=== PATIENT | female | born 1955 | race Caucasian/White ===

== ENCOUNTER 2023-04-06 13:03 | Inpatient (IN) ==
[2023-04-06 13:43] LABS: ABS Lymphocytes 1.1 10^3/uL (1.0-4.8); ABS Monocytes 1.5 10^3/uL (0.0-0.9); ABS Nucleated RBC 0.01 10^3/ul; Hematocrit 41.9 % (35-45); Hemoglobin 13.7 g/dL (11.5-14.3); Mean Corpuscular Hemoglobin 26.4 pg (27-33); Mean Corpuscular Hgb Conc 32.8 g/dL (31-36); Mean Corpuscular Volume 80.5 fL (80-97); Mean Platelet Volume 7.7 fL (7.5-11.2); Nucleated Red Blood Cells % 0.1 %/100WBC (0.0-0.8); Platelet Count 225 10^3/uL (150-450); White Blood Count 18.6 10^3/uL (3.8-11.8)
[2023-04-06 14:03] LABS: Albumin/Globulin Ratio 1.2 (1-3); Calcium 9.4 mg/dL (8.6-10.3); Creatinine, Serum 0.81 mg/dL (0.51-0.95); Globulin 3.3 g/dL (2-4); Total Bilirubin 1.3 mg/dL (0.2-1.0); Total Protein 7.3 g/dL (6.4-8.9); eGFR CKD-EPI 79.5 (>60)
[2023-04-06 14:04] LABS: INR 1.16 (0.83-1.13)
[2023-04-06 15:49] LABS: High Sensitivity Troponin 1 Hr 6 pg/mL (<15)
[2023-04-06] MEDS: Albuterol/Ipratropium NEB.SOL (2.5/0.5 MG) 3 ML NEB.SOLN INH ONE ×2 (15:58→16:50)
[2023-04-06] MEDS: Dexamethasone IV 4 MG/ML VIAL 1 ml VIAL IV SLOW PU ONE (15:58)
[2023-04-06] MEDS: cefTRIAXone 1 gm/50 mL D5W 1 GM/50 ML BAG IV SCH (15:58)
[2023-04-06] MEDS: Azithromycin 500 mg/250 ml NS 500 MG/250 ML BAG IVPB ONE (15:59)
[2023-04-06] MEDS ORDERED: Albuterol/Ipratropium NEB.SOL (2.5/0.5 MG) 3 ML NEB.SOLN INH PRN (19:38)
[2023-04-07] MEDS: Albuterol/Ipratropium NEB.SOL (2.5/0.5 MG) 3 ML NEB.SOLN INH SCH ×2 (00:16→16:04)
[2023-04-07 07:17] LABS: ABS Lymphocytes 0.7 10^3/uL (1.0-4.8); ABS Monocytes 0.4 10^3/uL (0.0-0.9); ABS Neutrophils 11.7 10^3/uL (1.5-7.6); Hematocrit 38.3 % (35-45); Hemoglobin 12.9 g/dL (11.5-14.3); Lymphocyte % 5.6 %; Mean Corpuscular Hgb Conc 33.6 g/dL (31-36); Mean Corpuscular Volume 80.3 fL (80-97); Mean Platelet Volume 7.8 fL (7.5-11.2); Platelet Count 209 10^3/uL (150-450); Red Blood Count 4.77 10^6/uL (3.63-4.92); Red Cell Distribution Width 13.1 % (12-17); White Blood Count 12.8 10^3/uL (3.8-11.8)
[2023-04-07 07:33] LABS: Calcium 9.1 mg/dL (8.6-10.3); Creatinine, Serum 0.92 mg/dL (0.51-0.95); Potassium 4.4 mmol/L (3.5-5.0); eGFR CKD-EPI 68.2 (>60)
[2023-04-07] MEDS ORDERED: Albuterol HFA INHALER 8 gm MDI INH PRN (08:02)
[2023-04-07] MEDS ORDERED: Calcium Carb (TUMS) 500 mg CHEW TAB PO PRN (11:27)
[2023-04-07] MEDS: Mometasone/Formoter 200/5 MDI INH SCH (12:31)
[2023-04-07] MEDS ORDERED: Albuterol HFA INHALER 8 gm MDI INH SCH (13:00)
[2023-04-07] MEDS: cefTRIAXone 1 gm/50 mL D5W 1 GM/50 ML BAG IV SCH (15:56)
[2023-04-07] MEDS: Azithromycin 500 mg/250 ml NS 500 MG/250 ML BAG IVPB SCH (16:34)
[2023-04-08] MEDS: Albuterol/Ipratropium NEB.SOL (2.5/0.5 MG) 3 ML NEB.SOLN INH SCH (07:35)
[2023-04-08 13:40] VITALS: BP 133/68
== END 2023-04-08 16:10 | disposition home or self-care (01) | DRG 871 ==
LOC: ED 13:03 → EDHOLD 18:25 → SUATTDRO 18:25 → MEDTELE 18:30 → EDHOLD 18:32 → MEDTELE 18:33 → MED 20:19
PROVIDERS: ADMIT Internal Medicine; ATTEND Internal Medicine